=== PATIENT | male | born 1990 | race Caucasian/White ===

== ENCOUNTER 2018-12-26 02:22 | Emergency (ER) | payer OTHER ==
[2018-12-26] MEDS: IBUPROFEN 600 MG TAB PO (04:36)
[2018-12-26] MEDS: ACETAMINOPHEN 325 MG TAB PO (04:36)
== END 2018-12-26 05:15 | disposition home or self-care (01) ==
LOC: FTE 02:22
DX: S80.01XA Contusion of right knee, initial encounter (principal); F17.210 Nicotine dependence, cigarettes, uncomplicated; W22.8XXA Striking against or struck by other objects, initial encounter; Y92.9 Unspecified place or not applicable
CPT/HCPCS: 29505; 73562; 99283-25